=== PATIENT | male | born 1990 | race Caucasian/White ===

== ENCOUNTER 2017-09-01 20:34 | Emergency (ER) | payer BC ==
[~2017-09-01] VITALS: Ht 193 cm; Wt 103.6 kg
[2017-09-01 20:39] VITALS: BP 169/87; TEMP 97.5
[2017-09-01] MEDS ORDERED: PROVENTIL0.09 MG/A1 IH (20:42)
[2017-09-01] MEDS ORDERED: 00186-0370-20 IH (20:42)
[2017-09-01] MEDS ORDERED: SINGULAIR 110 MG/TAB PO (20:43)
[2017-09-01] MEDS ORDERED: AMOXICILLIN 8751 TAB PO (21:36)
[2017-09-01 22:05] VITALS: PULSE 87
== END 2017-09-01 22:04 | disposition home or self-care (01) ==
LOC: COL.ER 20:34
DX: S61.412A Laceration without foreign body of left hand, initial encounter (principal); S61.432A Puncture wound without foreign body of left hand, initial encounter; Z79.52 Long term (current) use of systemic steroids; W54.0XXA Bitten by dog, initial encounter; Y92.009 Unspecified place in unspecified non-institutional (private) residence as the place of occurrence of the external cause

== ENCOUNTER → 2018-11-18 | Outpatient (CLI) | payer BC ==
[~2018-11-18] MED LIST: 00186-0370-20 IH; AMOXICILLIN 8751 TAB PO; PROVENTIL0.09 MG/A1 IH; SINGULAIR 110 MG/TAB PO
== END ==
LOC: COL.RAD 13:13
DX: N43.3 Hydrocele, unspecified (principal)